=== PATIENT | female | born 1990 | race Caucasian/White ===

== ENCOUNTER → 2020-04-14 | Outpatient (REF) | payer OTHER ==
[2020-04-14 16:48] LABS: HEMOGLOBIN 11.6 g/dl (12.0-15.5); MEAN CORPUSCULAR HEMOGLOBIN 29.8 pg (27.0-33.0); MEAN CORPUSCULAR HGB CONC 34.1 g/dl (32.0-36.5); MEAN CORPUSCULAR VOLUME 87.4 fl (80.0-96.0); PLATELET COUNT, AUTOMATED 370 10^3/uL (150-450); RED BLOOD COUNT 3.89 10^6/uL (4.00-5.40); WHITE BLOOD COUNT 11.3 10^3/uL (4.0-10.0)
[2020-04-14 18:12] LABS: CHLAMYDIA DNA AMPLIFICATION NEGATIVE (NEGATIVE); GC DNA AMPLIFICATION NEGATIVE (NEGATIVE)
[2020-04-17 08:33] LABS: HIV 1&2 SCREEN CENTAUR NEGATIVE (NEGATIVE)
[2020-04-17 13:37] LABS: HEPATITIS C VIRUS ABY INDEX 0.2 INDEX (<0.8)
== END ==
LOC: M PLALAB 15:54
PROVIDERS: ATTEND Advanced Practice Midwife
DX: Z34.01 Encounter for supervision of normal first pregnancy, first trimester (principal)

== ENCOUNTER → 2020-05-08 | Outpatient (CLI) | payer OTHER | LOC: M PLALAB 12:31 | PROVIDERS: ATTEND Advanced Practice Midwife | DX: Z13.79 Encounter for other screening for genetic and chromosomal anomalies (principal) ==

== ENCOUNTER → 2020-08-21 | Outpatient (REF) | payer OTHER ==
[2020-08-21 10:44] LABS: HEMATOCRIT 31.2 % (36.0-47.0); HEMOGLOBIN 10.4 g/dl (12.0-15.5); MEAN CORPUSCULAR HEMOGLOBIN 30.3 pg (27.0-33.0); MEAN CORPUSCULAR HGB CONC 33.3 g/dl (32.0-36.5); PLATELET COUNT, AUTOMATED 340 10^3/uL (150-450); RED BLOOD COUNT 3.43 10^6/uL (4.00-5.40); WHITE BLOOD COUNT 12.7 10^3/uL (4.0-10.0)
== END ==
LOC: M PLALAB 08:47
PROVIDERS: ATTEND Advanced Practice Midwife
DX: Z34.02 Encounter for supervision of normal first pregnancy, second trimester (principal)

== ENCOUNTER → 2020-10-25 | Outpatient (REF) | payer OTHER | LOC: M SFHCWAGY 13:49 | PROVIDERS: ATTEND Advanced Practice Midwife | DX: O26.13 Low weight gain in pregnancy, third trimester (principal); Z3A.00 Weeks of gestation of pregnancy not specified ==

== ENCOUNTER → 2020-11-07 | Outpatient (CLI) | payer OTHER ==
--- NOTE | 2020-11-07 15:07 | REP ---
INDICATION: LOW WEIGHT GAIN DURING ,GRPWTH COMPARISON: None. TECHNIQUE: Transabdominal obstetrical ultrasound with color Doppler evaluation. FINDINGS: Examination demonstrates a single live advanced fetus in cephalic presentation. motion is identified by technologist. Placenta is noted posterior fundal and grade 2 without evidence for placenta previa or abruption. Amniotic fluid volume is normal. Gestational age by current measurements 30 weeks 3 days with STEVEN 11/18/2020. FHR equals 139 beats per minute. BPD: 9.1 cm 37 weeks 1 day HC: 32.8 cm 37 weeks 2 days AC: 35.1 cm 39 weeks 0 days FL: 7.8 cm 39 weeks 6 days HL: 6.6 cm 38 weeks 4 days HC/AC: 0.94 Estimated weight 3583 grams (74thpercentile). SANAM: 12.8 cm (7.3-23.4) IMPRESSION: Single live advanced gestation in cephalic presentation. <Electronically signed by Soham Cedillo > 11/07/20 [id number]
== END ==
LOC: M WHC 13:29
PROVIDERS: ATTEND Advanced Practice Midwife
DX: O26.13 Low weight gain in pregnancy, third trimester (principal); Z3A.30 30 weeks gestation of pregnancy

== ENCOUNTER 2020-11-25 21:40 | Inpatient (IN) | payer OTHER ==
[~2020-11-25] VITALS: Ht 167.6 cm; Wt 86.6 kg
[2020-11-25] VITALS (14 sets, daily range): BP systolic 114–179; BP diastolic 70–86
[2020-11-25] MEDS ORDERED: LACTATED RINGER'S 1000 ML IV STA (21:56)
--- NOTE | 2020-11-25 22:16 | HPEPDOC ---
Obstetrical History & Physical General Date of Admission Nov 25, 2020 at 21:40 Primary Care Physician: RESHMA SANDRA CNM History of Present Illness Sanam is a 31-year-old female who is a at 40.3 weeks gestation with an STEVEN of 11/22/20 based off of her LMP and consistent with her first trimester ultrasound. She initiated care in her first trimester with [facility]. Her has been uncomplicated. She was tested at her first appointment with [place] genetic testing due to her family history and found to carry BRCA I. She presents to L&D with complaints of painful contractions that started after her water broke at 2014. She reported a large amount of clear fluid. She reports active movement. She denies vaginal bleeding. Chief Complaint: Active Labor, Rupture of membranes Information Provided By: Patient Age: 30 : 1 Term: 0 Pre-term: 0 Abortions: 0 Livin Care Care: Good Care Dating Final EDC: Nov 22, 2020 Final EDC by: LMP LMP: Feb 16, 2020 EGA at Admission: 40.3 Antepartum Course Pre- weight (lbs.): 177 Admission Weight (lbs.): 195 Change in Weight (lbs.): 18 Past Medical History Past Obstetrical History : Past Obstetrical History: [employer] History: Other (BRCA I positive) Past Medical History Surgical History: Other (Achilles tendon repair) Family History Significant Family History: Cancer (lung cancer and breast cancer), Hyperlipidemia Social History Social history lives in [place]. 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 Marital Status: Family situation: Spouse/partner home Psychosocial History: No pertinent psych hx * Smoker: non-smoker Alcohol: Denies Drugs: denies Abuse Violence Screening Have you been hit/kicked/slapp: No Have you been sexually assault: No Imunizations Tdap status: current Influenza Status: current Allergies Coded Allergies: No Known Drug Allergies (Verified Allergy, Unknown, 11/25/20) Physical Examination Physical Examination GENERAL: Alert and oriented times three. BREAST: . ABDOMEN: Gravid and non-tender to touch. FETUS: Is vertex (VTX) by sterile vaginal examination (SVE), fetus is vertex (VTX) by Conrado. EFW 3800 grams. LUNGS: Clear to auscultation (CTA). EXTREMITIES: No edema. No clonus. Deep tendon reflexes (DTRs) + 2. Vital Signs/I&O Vital Signs Label Value Date Time Pulse 80 11/25/202228 Blood Pressure Assessment 179/82 (114) 11/25/202228 Source Automatic Cuff (NIBP) Pulse 101 11/25/202246 Blood Pressure Assessment 159/78 (105) 11/25/202246 Source Automatic Cuff (NIBP) Pulse 99 11/25/202258 Blood Pressure Assessment 138/86 (103) 11/25/202258 Source Automatic Cuff (NIBP) Laboratory Data [facility] Laboratory Tests 2 11/25/20 21:48: Serology Scanned Report Hepatitis B Testing CBC/BMP Item Value Date Time White Blood Count 15.6 10^3/uL H 11/25/202210 Red Blood Count 3.64 10^6/uL L 11/25/202210 Hemoglobin 10.8 g/dl L 11/25/202210 Hematocrit 31.7 % L 11/25/202210 Mean Corpuscular Volume 87.1 fl 11/25/202210 Mean Corpuscular Hemoglobin 29.7 pg 11/25/202210 Mean Corpuscular Hemoglobin Concent 34.1 g/dl 11/25/202210 Red Cell Distribution Width 13.3 % 11/25/202210 Platelet Count 326 10^3/uL 11/25/202210 Urine Culture: No Growth Pertinent Laboratoy Data Blood Type: A+ RBC Antibody Screen: Negative HIV: Negative Hepatitis B: Negative Hepatitis C: Negative Rapid Plasma Reagin: Nonreactive Rubella: Immune Chlamydia/Gonorrhea: Negative Group B Streptococcus: Negative Glucose Tolerance Test: 101 Anatomy Ultrasound Ultrasound Date: Nov 07, 2020 Placenta Location: Posterior Normal Anatomy: Yes Placenta Previa: No Estimated Weight (grams): 3583 Vaginal Examination Dilation: 4 cm Effacement: 80% Station: -2 Cervical Consistency: Soft Cervical Position: Anterior Presentation: Cephalic presentation Position: Vertex (occiput) Assessment Heart Rate (FHR): 140 Variability: Moderate Accelerations: Positive Decelerations: Early Tocometer Contractions: Yes Frequency: regular, every 1-3 min. Strength: palpated as moderate Multi-drug resistant Organism: No history of MDRO Assessment/Plan Assessment IUP at 40.3 weeks gestation active labor spontaneous rupture of membranes GBS negative Category I FHR tracing Plan Admit to L&D. OOB ad ivanna. Diet: clear. Group B Streptococcus (GBS) negative. Labs and intravenous (IV) per unit protocol. Anesthesia consult per patient's request. Lactated Ringers (LR): Bolus 800 mL, then at 125 mL/hr. Anticipate cervical change and . C-S as appropriate. RESHMA SANDRA CNM Nov 25, 2020 22:16
[2020-11-25 22:25] LABS: HEMATOCRIT 31.7 % (36.0-47.0); HEMOGLOBIN 10.8 g/dl (12.0-15.5); MEAN CORPUSCULAR HEMOGLOBIN 29.7 pg (27.0-33.0); MEAN CORPUSCULAR HGB CONC 34.1 g/dl (32.0-36.5); MEAN CORPUSCULAR VOLUME 87.1 fl (80.0-96.0); PLATELET COUNT, AUTOMATED 326 10^3/uL (150-450); RED BLOOD COUNT 3.64 10^6/uL (4.00-5.40); WHITE BLOOD COUNT 15.6 10^3/uL (4.0-10.0)
[2020-11-25] MEDS ORDERED: FENTANYL 2MCG/ML ROPIVACAINE 0.2% IN 0.9% NACL 100ML IVBAG As Ordered ONE (22:33)
[2020-11-25] MEDS: FENTANYL/ROPIVACAINE/NACL BAG 100 ML EPIDURAL SCH (23:00)
[2020-11-25] MEDS: LR 1,000 ML IV SCH (23:29)
[2020-11-26] VITALS (28 sets, daily range): BP systolic 110–148; BP diastolic 55–95
[2020-11-26] MEDS ORDERED: REFRIGERATOR IV KEYS XX PRN (02:15)
[2020-11-26] MEDS ORDERED: ONDANSETRON 4MG/2ML VIAL IV PRN (02:15)
[2020-11-26] MEDS ORDERED: LACTATED RINGER'S 1000 ML IV PRN (02:15)
[2020-11-26] MEDS ORDERED: ePHEDrine SULFATE 25 MG/5 ML(5MG/ML) SYRINGE IV PRN (02:15)
[2020-11-26] MEDS ORDERED: EPIDURAL COMMENT XX SCH (02:15)
[2020-11-26] MEDS ORDERED: diphenhydrAMINE 50MG/ML VIAL (J1200) IV PRN (02:15)
[2020-11-26] MEDS ORDERED: NALOXONE INJ 0.4MG/1ML VIAL (J2310 PER 1MG) IV PRN (02:15)
[2020-11-26] MEDS ORDERED: EPIDURAL/PCA KEYS XX PRN (02:15)
[2020-11-26] MEDS ORDERED: FENTANYL 2MCG/ML ROPIVACAINE 0.2% IN 0.9% NACL 100ML IVBAG As Ordered ONE (06:51)
[2020-11-26] MEDS: FENTANYL/ROPIVACAINE/NACL BAG 100 ML EPIDURAL SCH (06:54)
[2020-11-26 07:54] LABS: ALT/SGPT 14 U/L (12-78); BILIRUBIN,TOTAL 0.6 MG/DL (0.2-1.0); CREATININE FOR GFR 0.62 MG/DL (0.55-1.30); GLOMERULAR FILTRATION RATE > 60.0 (>60); LDH LACTATE DEHYDROGENASE 147 U/L (84-246); URIC ACID 4.5 MG/DL (2.6-6.0)
[2020-11-26] MEDS: LR 1,000 ML IV SCH (08:32)
--- NOTE | 2020-11-26 09:17 | IPNPDOC ---
Obstetrical Progress Note Date of Service Nov 26, 2020 Subjective Patient reports epidural is working well but she does feel some vaginal pressure. Objective Vital Signs Date Time Temp Pulse Resp B/P (MAP) Pulse Ox O2 Delivery O2 Flow Rate FiO2 11/26/20 07:29 98.4 107 18 Room Air 11/26/20 06:30 142/95 (111) Assessment Heart Rate (FHR): 120 Variability: Moderate Accelerations: Positive Decelerations: None Heart Rate Tracing: Category I Tocometer Contractions: Yes Frequency: every 1-5 min. Sterile Vaginal Examination Dilation: 7 cm Effacement (%): 90% Station: -1 Cervical Consistency: Soft Cervical Position: Anterior Postion/Presentation: Cephalic presentation (exam done by nurse) Assessment and Plan Age: 30 : 1 Term: 0 Pre-term: 0 Abortions: 0 Livin EGA at Admission: 40.3 Weeks & Days 40.4 Status: Reassuring Group B Streptococcus: Negative Anticipate: Vaginal Delivery Additional Comments IV Pitocin was started at 2 mu/min and stopped due to variables around 0400. Patient has had a Category I FHR tracing with periods of Category II. IV Pitocin restarted. RESHMA SANDRA CNM Nov 26, 2020 09:16
[2020-11-26] MEDS ORDERED: RHOGAM 300 MCG (1500 IU) INJ (J2790) IM SCH (10:00)
[2020-11-26] MEDS ORDERED: ACETAMINOPHEN TAB 650MG DOSE (2X325MG) PO PRN (10:00)
[2020-11-26] MEDS ORDERED: MEASLES,MUMPS,RUBELLA VACCINE INJ (MMR-II) (90707) SC SCH (10:00)
[2020-11-26] MEDS ORDERED: OXYTOCIN DRIP 30 UNITS in IV 1 EA IV SCH ×3 (10:00)
[2020-11-26] MEDS ORDERED: ANUSOL HC CREAM 30GM TOP PRN (10:00)
[2020-11-26] MEDS ORDERED: IBUPROFEN 800 MG TAB PO PRN (10:00)
[2020-11-26] MEDS ORDERED: METHYLERGONOVINE MALEATE 0.2 MG TAB PO PRN (10:00)
[2020-11-26] MEDS ORDERED: ACETAMINOPHEN 500 MG TAB PO PRN (10:00)
[2020-11-26] MEDS ORDERED: BENZOCAINE 20% HEMORRHOIDAL OINTMENT 28GM TUBE TOP PRN (10:00)
--- NOTE | 2020-11-26 10:15 | DNPDOC ---
[facility] Delivery Note Delivery Note DATE OF DELIVERY: 11/26/20 at 0904 PREDELIVERY DIAGNOSIS: 40-3/7 weeks' gestation and labor. POST DELIVERY DIAGNOSIS: Delivered at 40.4 weeks gestation PROCEDURE: Spontaneous vaginal delivery. RAILROAD REPAIRER: Reshma Mckinnon CNM, ANIBAL ANESTHESIA: epidural. ESTIMATED BLOOD LOSS: 350 mL. FINDINGS: 8 pounds 1 ounce; 3670 grams; female infant, Score 9/9, GHTN during labor. DELIVERY SUMMARY: Sanam is a 30-year-old female who is now a who presented to L&D in active labor and spontaneous rupture of membranes. She requested an epidural for pain management. Her labor was augmented with a very small amount of IV Pitocin. She progressed to fully dilated at 0822 and pushed to a living female in the VINICIO position with restitution to LOT. The anterior shoulder delivered with gentle downward traction and the corpus immediately followed at 0904. The baby was placed [id number] with mom. The cord was clamped and cut by the FOB after pulsation ceased. A 3-vessel cord was noted. The placenta delivered spontaneously and intact at 0909. Uterine hemostasis was achieved via rapid infusion of IV Pitocin and fundal massage. The perineum, cervix, and vagina was inspected and found to have a 2nd degree laceration. The laceration was repaired with a 3.[address]-1. Mom plans to breast feed. They are naming her Liss. Both mom and baby are in stable condition. All instruments and sponges were counted and counts were correct. RESHMA MCKINNON CNM Nov 26, 2020 10:15
[2020-11-26] MEDS: DOCUSATE SODIUM 100MG CAPSULE PO PRN (21:22)
[2020-11-27 06:00] VITALS: BP 139/75
[2020-11-27] MEDS: PRENATAL VITAMINS CHEWABLE TABLET PO SCH (07:43)
[2020-11-27] MEDS: IBUPROFEN 600MG TAB PO PRN ×3 (07:44→22:41)
[2020-11-27 17:55] VITALS: BP 130/73
[2020-11-27] MEDS: DOCUSATE SODIUM 100MG CAPSULE PO PRN (19:34)
[2020-11-28] MEDS: IBUPROFEN 600MG TAB PO PRN (05:33)
[2020-11-28 06:00] VITALS: BP 132/91
[2020-11-28] MEDS: PRENATAL VITAMINS CHEWABLE TABLET PO SCH (08:22)
[2020-11-28] MEDS ORDERED: IBUP80TA PO (09:35)
[2020-11-28] MEDS ORDERED: PRENCHW PO (09:35)
[2020-11-28] MEDS ORDERED: ACET-683 PO (09:35)
--- NOTE | 2020-11-28 09:58 | DS.PDOC ---
Discharge Summary General Date of Admission Nov 25, 2020 at 21:40 Date of Discharge 11/28/2020 Discharge Summary PROCEDURES PERFORMED DURING STAY: . ADMITTING DIAGNOSES: 1. Active Labor and Term. 2. GHTN in labor. DISCHARGE DIAGNOSES: 1. Day 2 s/p . COMPLICATIONS/CHIEF COMPLAINT: Labor Check. HISTORY OF PRESENT ILLNESS: Sanam is a 30 y/o s/p with 2nd degree laceration with repair. Reports ambulation with ease, voiding spontaneously, has had a bowel movement, and is tolerating a regular diet without issue. Minimal lochia. is going well. Denies SOB, chest pain, visual changes, headaches, nausea/vomiting, epigastric pain. Pain well controlled with Tylenol and Motrin. Declined control at this time. HOSPITAL COURSE: Uncomplicated. DISCHARGE MEDICATIONS: Please see below. ALLERGIES: Please see below. PHYSICAL EXAMINATION ON DISCHARGE: VITAL SIGNS: Please see below. GENERAL: Alert and oriented x3 HEENT: Normal on inspection NECK: Supple, no JVD CARDIOVASCULAR EXAMINATION: Regular rate and rhythm, no murmur auscultated RESPIRATORY EXAMINATION: Regular rate, no accessory muscle use. ABDOMINAL EXAMINATION: Soft, nontender, no distention. Fundus firm at U-1. Minimal lochia. EXTREMITIES: No edema. Negative calf tenderness. Negative clonus. DTRs +2. SKIN: Warm, dry, intact, pink. NEUROLOGICAL EXAMINATION: Grossly intact. PSYCHIATRIC EXAMINATION: Denies s/s of depression. LABORATORY DATA: Please see below. PROGNOSIS: Good ACTIVITY: As tolerated, nothing in the vagina for 6weeks. DIET: Regular DISCHARGE PLAN: Home DISPOSITION: Stable. DISCHARGE INSTRUCTIONS: 1. Nothing in the vagina for 6 weeks. 2. Tylenol and Motrin for pain. 3. Discussed to call MD or go to ER for any s/s of DVT/PE, preeclampsia, mastitis, endometritis, depression. ITEMS TO FOLLOWUP ON ON OUTPATIENT: 1. 6 week follow up. DISCHARGE CONDITION: Stable. TIME SPENT ON DISCHARGE: Greater than 15 minutes. Vital Signs/I&Os Vital Signs Date Time Temp Pulse Resp B/P (MAP) Pulse Ox O2 Delivery O2 Flow Rate FiO2 11/28/20 06:00 97.9 74 18 132/91 (105) 100 Room Air Discharge Medications Scheduled Pnv No.118/Iron Fumarate/FA ( 19 Chewable Tablet) 1 Each Tab.chew, 1 TAB PO DAILY Scheduled PRN Acetaminophen (Acetaminophen) 500 Mg Tablet, 1,000 MG PO Q8HP PRN for PAIN Ibuprofen (Ibuprofen) 800 Mg Tablet, 800 MG PO Q8HP PRN for PAIN Allergies Coded Allergies: No Known Drug Allergies (Verified Allergy, Unknown, 11/25/20) RESHMA SANDRA CNM Nov 28, 2020 09:48
== END 2020-11-28 12:20 | disposition home or self-care (01) | DRG 807 ==
LOC: M LDI 21:40 → M OBS 11-26 11:06
PROVIDERS: ADMIT Advanced Practice Midwife; ATTEND Advanced Practice Midwife
PROC: 10E0XZZ Delivery of Products of Conception, External Approach (ICD-10-PCS; principal; 2020-11-26)
PROC: 0KQM0ZZ Repair Perineum Muscle, Open Approach (ICD-10-PCS; 2020-11-26)
DX: O48.0 Post-term pregnancy (principal); Z37.0 Single live birth; Z3A.40 40 weeks gestation of pregnancy; O70.1 Second degree perineal laceration during delivery; O13.4 Gestational [pregnancy-induced] hypertension without significant proteinuria, complicating childbirth

== ENCOUNTER → 2021-03-15 | Outpatient (REF) | payer OTHER ==
[~2021-03-15] MED LIST: ACET-683 PO; IBUP80TA PO; PRENCHW PO
== END ==
LOC: M SFHCWAGY 13:43
PROVIDERS: ATTEND Advanced Practice Midwife
DX: Z12.4 Encounter for screening for malignant neoplasm of cervix (principal)

== ENCOUNTER → 2022-03-07 | Outpatient (CLI) | payer OTHER ==
[~2022-03-07] MED LIST changes: +PROHANCE 279.3MG/ML 15ML VIAL As Ordered ONE
== END ==
LOC: M RAD 13:22
PROVIDERS: ATTEND Nurse Practitioner Women's Health
DX: Z91.89 Other specified personal risk factors, not elsewhere classified (principal); Z15.01 Genetic susceptibility to malignant neoplasm of breast; Z80.3 Family history of malignant neoplasm of breast
CPT/HCPCS: A9576; C8908

== ENCOUNTER → 2022-06-27 | Outpatient (REF) | payer OTHER ==
[~2022-06-27] MED LIST changes: -PROHANCE 279.3MG/ML 15ML VIAL As Ordered ONE
== END ==
LOC: M SFHCWAGY 13:41
PROVIDERS: ATTEND Nurse Practitioner Family
DX: Z12.4 Encounter for screening for malignant neoplasm of cervix (principal); R87.611 Atypical squamous cells cannot exclude high grade squamous intraepithelial lesion on cytologic smear of cervix (ASC-H)

== ENCOUNTER → 2022-07-12 | Outpatient (CLI) | payer OTHER | LOC: M WHC 08:45 | PROVIDERS: ATTEND Nurse Practitioner Women's Health | DX: Z15.01 Genetic susceptibility to malignant neoplasm of breast (principal); Z91.89 Other specified personal risk factors, not elsewhere classified; Z80.3 Family history of malignant neoplasm of breast ==

== ENCOUNTER → 2022-07-16 | Outpatient (REF) | payer OTHER | LOC: M SFHCWAGY 17:26 | PROVIDERS: ATTEND Obstetrics & Gynecology | DX: R87.612 Low grade squamous intraepithelial lesion on cytologic smear of cervix (LGSIL) (principal) ==

== ENCOUNTER → 2023-03-17 | Outpatient (CLI) | payer OTHER ==
[~2023-03-17] MED LIST changes: +PROHANCE 279.3MG/ML 15ML VIAL ONE
== END ==
LOC: M PLAIMG 08:46
PROVIDERS: ATTEND Nurse Practitioner Women's Health
DX: R92.2 Inconclusive mammogram (principal); Z15.01 Genetic susceptibility to malignant neoplasm of breast; Z91.89 Other specified personal risk factors, not elsewhere classified; Z80.3 Family history of malignant neoplasm of breast
CPT/HCPCS: A9576; C8908

== ENCOUNTER → 2023-07-02 | Outpatient (REF) | payer OTHER ==
[~2023-07-02] MED LIST changes: -PROHANCE 279.3MG/ML 15ML VIAL ONE
== END ==
LOC: M SFHCWAGY 17:47
PROVIDERS: ATTEND Nurse Practitioner Family
DX: Z12.4 Encounter for screening for malignant neoplasm of cervix (principal)
CPT/HCPCS: 87624; G0123

== ENCOUNTER → 2023-07-14 | Outpatient (CLI) | payer OTHER | LOC: M WHC 09:26 | PROVIDERS: ATTEND Nurse Practitioner Women's Health | DX: R92.2 Inconclusive mammogram (principal); Z15.01 Genetic susceptibility to malignant neoplasm of breast; Z91.89 Other specified personal risk factors, not elsewhere classified; Z80.3 Family history of malignant neoplasm of breast ==

== ENCOUNTER → 2024-02-04 | Outpatient (CLI) | payer OTHER ==
[~2024-02-04] MED LIST changes: +PROHANCE 279.3MG/ML 15ML VIAL ONE
== END ==
LOC: M PLAIMG 09:21
PROVIDERS: ATTEND Nurse Practitioner Women's Health
DX: Z80.3 Family history of malignant neoplasm of breast (principal); Z15.01 Genetic susceptibility to malignant neoplasm of breast; R92.2 Inconclusive mammogram; Z91.89 Other specified personal risk factors, not elsewhere classified
CPT/HCPCS: A9576; C8908

== ENCOUNTER → 2024-09-23 | Outpatient (CLI) | payer OTHER ==
[~2024-09-23] MED LIST changes: -PROHANCE 279.3MG/ML 15ML VIAL ONE
[2024-09-23 15:47] LABS: HEMATOCRIT 33.1 % (36.0-47.0); HEMOGLOBIN 11.3 g/dl (12.0-15.5); MEAN CORPUSCULAR HEMOGLOBIN 29.3 pg (27.0-33.0); MEAN CORPUSCULAR HGB CONC 34.1 g/dl (32.0-36.5); MEAN CORPUSCULAR VOLUME 85.8 fl (80.0-96.0); PLATELET COUNT, AUTOMATED 375 10^3/uL (150-450); RED BLOOD COUNT 3.86 10^6/uL (4.00-5.40); WHITE BLOOD COUNT 10.5 10^3/uL (4.0-10.0)
[2024-09-23 16:14] LABS: URIC ACID 3.3 MG/DL (3.1-7.8)
[2024-09-23 16:16] LABS: CREATININE,RANDOM URINE 52.3 MG/DL
[2024-09-23 16:17] LABS: LDH LACTATE DEHYDROGENASE 145 U/L (120-246)
[2024-09-23 16:18] LABS: ALT/SGPT 31 U/L (7.0-40); AST/SGOT 13 U/L (<34); BILIRUBIN,TOTAL 0.3 MG/DL (0.3-1.2); CREATININE FOR GFR 0.61 MG/DL (0.55-1.30); GLOMERULAR FILTRATION RATE > 60.0 (>60)
[2024-09-23 16:19] LABS: TOTAL PROTEIN,RANDOM URINE < 6.0 MG/DL (0.0-14.0)
[2024-09-23 16:52] LABS: HIV 1&2 SCREEN NEGATIVE (NEGATIVE)
[2024-09-23 16:59] LABS: HEPATITIS C VIRUS ABY INDEX 0.02 INDEX (<0.8)
[2024-09-23 17:43] LABS: GC DNA AMPLIFICATION NEGATIVE (NEGATIVE)
== END ==
LOC: M PLALAB 14:08
PROVIDERS: ATTEND Advanced Practice Midwife
DX: Z34.81 Encounter for supervision of other normal pregnancy, first trimester (principal); Z87.59 Personal history of other complications of pregnancy, childbirth and the puerperium

== ENCOUNTER → 2024-10-22 | Outpatient (CLI) | payer OTHER | LOC: M PLALAB 10:24 | PROVIDERS: ATTEND Obstetrics & Gynecology | DX: Z34.80 Encounter for supervision of other normal pregnancy, unspecified trimester (principal) ==

== ENCOUNTER → 2024-12-23 | Outpatient (CLI) | payer OTHER | LOC: M WHC 08:19 | PROVIDERS: ATTEND Obstetrics & Gynecology | DX: Z34.92 Encounter for supervision of normal pregnancy, unspecified, second trimester (principal); Z3A.20 20 weeks gestation of pregnancy ==

== ENCOUNTER → 2025-01-04 | Outpatient (REF) | payer OTHER ==
[2025-01-04 20:26] LABS: Trichomonas vaginalis (AMP) NOT DETECTED (NEGATIVE)
[2025-01-04 20:49] LABS: GC DNA AMPLIFICATION NEGATIVE (NEGATIVE)
== END ==
LOC: M SFHCWAGY 17:43
PROVIDERS: ATTEND Obstetrics & Gynecology
DX: Z34.92 Encounter for supervision of normal pregnancy, unspecified, second trimester (principal)

== ENCOUNTER → 2025-01-21 | Outpatient (CLI) | payer OTHER ==
[2025-01-21 14:31] LABS: HEMATOCRIT 29.9 % (36.0-47.0); HEMOGLOBIN 9.9 g/dl (12.0-15.5); MEAN CORPUSCULAR HEMOGLOBIN 29.6 pg (27.0-33.0); MEAN CORPUSCULAR HGB CONC 33.1 g/dl (32.0-36.5); MEAN CORPUSCULAR VOLUME 89.5 fl (80.0-96.0); PLATELET COUNT, AUTOMATED 333 10^3/uL (150-450); RED BLOOD COUNT 3.34 10^6/uL (4.00-5.40)
[2025-01-21 14:50] LABS: GLUCOSE CHALLENGE TEST 1 HOUR 112 MG/DL (LESS THAN 140)
[2025-01-21 15:32] LABS: HIV 1&2 SCREEN NEGATIVE (NEGATIVE)
[2025-01-21 15:40] LABS: HEPATITIS C VIRUS ABY INDEX 0.06 INDEX (<0.8)
== END ==
LOC: M PLALAB 08:27
PROVIDERS: ATTEND Obstetrics & Gynecology
DX: Z34.92 Encounter for supervision of normal pregnancy, unspecified, second trimester (principal)

== ENCOUNTER → 2025-03-17 | Outpatient (CLI) | payer OTHER ==
[2025-03-17 11:07] LABS: HEMOGLOBIN 9.2 g/dl (12.0-15.5); MEAN CORPUSCULAR HEMOGLOBIN 29.1 pg (27.0-33.0); MEAN CORPUSCULAR HGB CONC 32.9 g/dl (32.0-36.5); MEAN CORPUSCULAR VOLUME 88.6 fl (80.0-96.0); PLATELET COUNT, AUTOMATED 312 10^3/uL (150-450); RED BLOOD COUNT 3.16 10^6/uL (4.00-5.40); WHITE BLOOD COUNT 9.6 10^3/uL (4.0-10.0)
== END ==
LOC: M PLALAB 08:19
PROVIDERS: ATTEND Advanced Practice Midwife
DX: O99.013 Anemia complicating pregnancy, third trimester (principal); Z3A.00 Weeks of gestation of pregnancy not specified

== ENCOUNTER 2025-05-05 12:44 | Inpatient (IN) | payer OTHER ==
[~2025-05-05] VITALS: Ht 167.6 cm; Wt 84.2 kg
[2025-05-05] VITALS (30 sets, daily range): BP systolic 98–138; BP diastolic 51–83; O2SAT 98–100
[2025-05-05] MEDS ORDERED: TRANEXAMIC ACID INJection 1,000 MG in NS 100 ML IV PRN (12:50)
[2025-05-05] MEDS ORDERED: METHYLERGONOVINE MALEATE 0.2 MG/ML 1 ML VIAL IM PRN (12:50)
[2025-05-05] MEDS ORDERED: OXYTOCIN INJ 10UNITS/ML 1ML VIAL IM PRN (12:50)
[2025-05-05] MEDS ORDERED: CARBOPROST TROMETHAMINE 250 MCG/ML AMP IM PRN (12:50)
[2025-05-05] MEDS ORDERED: LIDOCAINE 1% MDV 20 ML VIAL INFIL PRN (12:50)
[2025-05-05] MEDS ORDERED: OXYTOCIN DRIP 30 UNITS in IV 1 EA IV PRN (12:50)
[2025-05-05] MEDS ORDERED: ASPI81CH33 PO (13:21)
[2025-05-05] MEDS ORDERED: IRON27TA2 PO (13:21)
[2025-05-05 13:40] LABS: PLATELET COUNT, AUTOMATED 285 10^3/uL (150-450)
[2025-05-05] MEDS ORDERED: NALOXONE INJ 0.4MG/1ML VIAL IV PRN (13:50)
[2025-05-05] MEDS ORDERED: EPIDURAL/PCA KEYS XX PRN (13:50)
[2025-05-05] MEDS ORDERED: ONDANSETRON 4MG 2ML VIAL IV PRN (13:50)
[2025-05-05] MEDS ORDERED: diphenhydrAMINE 50 MG/ML VIAL IV PRN (13:50)
[2025-05-05] MEDS ORDERED: LR 500 ML IV PRN (13:50)
[2025-05-05] MEDS: LACTATED RINGER'S 1000 ML IV STA (14:32)
[2025-05-05] MEDS: FENTANYL/ROPIVACAINE/NACL BAG 100 ML EPIDURAL SCH (14:32)
[2025-05-05 14:48] LABS: HIV 1&2 SCREEN NEGATIVE (NEGATIVE)
[2025-05-05 14:56] LABS: HEPATITIS C VIRUS ABY INDEX 0.03 INDEX (<0.8)
[2025-05-05] MEDS: OXYTOCIN DRIP 30 UNITS in IV 1 EA IV SCH (16:16)
[2025-05-05] MEDS: LR 1,000 ML IV SCH (16:19)
[2025-05-05] MEDS ORDERED: RHOGAM 300MCG (1500IU) INJ IM SCH (20:40)
[2025-05-05] MEDS ORDERED: MOM 30 ML SUSPENSION UDC PO PRN (20:40)
[2025-05-05] MEDS ORDERED: IBUPROFEN 600 MG TAB PO PRN (20:40)
[2025-05-05] MEDS ORDERED: DOCUSATE SODIUM 100 MG CAPSULE PO PRN (20:40)
[2025-05-05] MEDS ORDERED: ANUSOL HC CREAM 30 GM TOP PRN (20:40)
[2025-05-05] MEDS: IBUPROFEN 800 MG TAB PO PRN (21:20)
[2025-05-05] MEDS: DIBUCAINE 1% OINTMENT 30 GM TOP PRN (22:26)
[2025-05-05] MEDS: ACETAMINOPHEN 325 MG TAB PO PRN (22:26)
[2025-05-06 06:05] VITALS: BP 119/81; O2SAT 98
[2025-05-06] MEDS: PRENATAL VITAMINS CHEWABLE TABLET PO SCH (09:15)
[2025-05-06] MEDS: ACETAMINOPHEN 500 MG TAB PO PRN (09:15)
[2025-05-06 17:23] VITALS: BP 128/74; O2SAT 98
[2025-05-07] MEDS: MEASLES,MUMPS,RUBELLA VACCINE INJ (MMR-II) SC.IMMUN ONE (09:18)
== END 2025-05-07 18:50 | disposition home or self-care (01) | DRG 807 ==
LOC: M LDI 12:44 → M OBS 22:00
PROVIDERS: ADMIT Advanced Practice Midwife; ATTEND Advanced Practice Midwife
PROC: 10E0XZZ Delivery of Products of Conception, External Approach (ICD-10-PCS; principal; 2025-05-05)
PROC: 10907ZC Drainage of Amniotic Fluid, Therapeutic from Products of Conception, Via Natural or Artificial Opening (ICD-10-PCS; 2025-05-05)
PROC: 0HQ9XZZ Repair Perineum Skin, External Approach (ICD-10-PCS; 2025-05-05)
DX: O70.0 First degree perineal laceration during delivery (principal); Z37.0 Single live birth; Z3A.39 39 weeks gestation of pregnancy

== ENCOUNTER → 2025-07-13 | Outpatient (CLI) | payer OTHER ==
[~2025-07-13] MED LIST changes: +ASPI81CH33 PO; +IRON27TA2 PO
== END ==
LOC: M RAD 09:29
PROVIDERS: ATTEND Registered Nurse
DX: R10.11 Right upper quadrant pain (principal); K80.20 Calculus of gallbladder without cholecystitis without obstruction

== ENCOUNTER → 2025-08-04 | Outpatient (CLI) | payer OTHER | LOC: M WHC 07:22 | PROVIDERS: ATTEND Surgery | DX: Z12.31 Encounter for screening mammogram for malignant neoplasm of breast (principal); Z91.89 Other specified personal risk factors, not elsewhere classified; Z80.3 Family history of malignant neoplasm of breast; R92.333 Mammographic heterogeneous density, bilateral breasts ==

== ENCOUNTER → 2025-08-16 | Outpatient (CLI) | payer OTHER ==
[2025-08-16 12:33] LABS: ALT/SGPT 65 U/L (7.0-40); AST/SGOT 27 U/L (<34); CALCIUM LEVEL 10.0 MG/DL (8.5-10.1); CARBON DIOXIDE LEVEL 28 MMOL/L (20-31); CHLORIDE LEVEL 105 MMOL/L (98-107); CREATININE FOR GFR 0.67 MG/DL (0.55-1.30); GLOMERULAR FILTRATION RATE > 90.0 (>60); POTASSIUM SERUM 3.9 MMOL/L (3.5-5.1); SODIUM LEVEL 143 MMOL/L (136-145)
== END ==
LOC: M PLALAB 08:59
PROVIDERS: ATTEND Surgery
DX: K80.20 Calculus of gallbladder without cholecystitis without obstruction (principal)

== ENCOUNTER → 2025-09-14 | Outpatient (REF) | payer OTHER | LOC: M LAB REF 14:44 | PROVIDERS: ATTEND Physician Assistant | DX: J06.9 Acute upper respiratory infection, unspecified (principal) ==

== ENCOUNTER → 2025-09-28 | Outpatient (REF) | payer OTHER ==
[2025-10-04 13:12] LABS: HPV APTIMA Not Detected (Not Detected)
== END ==
LOC: M SFHCWAGY 10:10
PROVIDERS: ATTEND Advanced Practice Midwife
DX: Z01.419 Encounter for gynecological examination (general) (routine) without abnormal findings (principal); Z11.51 Encounter for screening for human papillomavirus (HPV); Z77.9 Other contact with and (suspected) exposures hazardous to health
CPT/HCPCS: 87624; G0123